=== PATIENT | male | born 1960 | race Caucasian/White ===

== ENCOUNTER 2017-11-16 06:49 | Inpatient (IN) | payer OTHER ==
[~2017-11-16] VITALS: Ht 185.4 cm; Wt 106.3 kg
[2017-11-16] MEDS ORDERED: ENOXAPARIN SODIUM INJ 100 MG/ML SYR SC STA (06:55)
[2017-11-16] MEDS ORDERED: SODIUM CHLORIDE 0.9% 1000ML 1,000 ML IV ONE ×3 (07:00→08:15)
[2017-11-16] MEDS ORDERED: AMIODARONE HCL 150MG 100 ML IV SCH (07:00)
[2017-11-16] MEDS ORDERED: AMIODARONE HCL 360MG 200 ML IV SCH ×2 (07:00→12:00)
[2017-11-16] MEDS ORDERED: AMIODARONE HCL INJ 150MG/3ML ONE ×2 (07:13→07:29)
[2017-11-16] MEDS ORDERED: MIDAZOLAM HCL 5MG/ML 2ML VIAL IV ONE (07:15)
[2017-11-16] MEDS ORDERED: MORPHINE SULFATE 5 MG/ML VIAL IV ONE (07:15)
[2017-11-16] MEDS ORDERED: AMIODARONE 900MG 500 ML IV ONE (07:15)
[2017-11-16] MEDS ORDERED: AMIODARONE HCL 150 MG in DEXTROSE 5% 100ML 100 ML IV SCH (07:15)
--- NOTE | 2017-11-16 07:16 | Diagnostic Imaging Report ---
PROCEDURE:CHEST SINGLE (PORTABLE) TECHNIQUE:Portable AP chest INDICATION:Shortness of breath COMPARISON:None. FINDINGS: Cardiomegaly with small left pleural effusion, bilateral lower lobe airspace opacity, left lingular air space opacity and mild central vascular prominence. Intact skeleton. CONCLUSION: Central vascular congestion with left lower lobe and lingular airspace opacity consistent with atelectasis and/or pneumonia in the appropriate context. Small left pleural effusion. Dictated by: Jad Gibbs M.D. on 11/16/2017 at 7:16 Electronically approved by: Jda Gibbs M.D. on 11/16/2017 at 7:16
[2017-11-16 07:18] LABS: BASOPHILS # (AUTO) 0.1 (0.0-0.1); BASOPHILS % 0.3 % (0.0-1.0); EOSINOPHILS % 0.2 % (0.0-6.0); HEMATOCRIT 43.5 % (38.2-49.6); HEMOGLOBIN 14.8 g/dL (14.0-18.0); LYMPHOCYTES # (AUTO) 0.8 (1.0-3.2); LYMPHOCYTES % 4.6 % (18.0-39.1); MEAN CORPUSCULAR HEMOGLOBIN 30.3 pg (28-32); MEAN CORPUSCULAR VOLUME 89.1 fL (81-99); MONOCYTES # (AUTO) 1.4 (0.2-0.8); MONOCYTES % 7.7 % (4.4-11.3); NEUTROPHILS # (AUTO) 15.4 (2.1-6.9); PLATELET COUNT 189 x10e3/uL (140-360); RED BLOOD COUNT 4.88 x10e6/uL (4.3-5.7); RED CELL DISTRIBUTION WIDTH 14.1 % (11.7-14.4)
[2017-11-16] MEDS ORDERED: MIDAZOLAM HCL 2 MG/2 ML VIAL ONE (07:19)
[2017-11-16] MEDS: AMIODARONE HCL 900 MG in DEXTROSE 5 % 500ML BOTTLE 500 ML IV SCH ×2 (07:20→22:57)
[2017-11-16 07:23] LABS: INR 1.37; PROTHROMBIN TIME 15.9 seconds (11.9-14.5)
[2017-11-16 07:24] LABS: PARTIAL THROMBOPLASTIN TIME 33.7 seconds (23.8-35.5)
[2017-11-16 07:30] LABS: ALBUMIN/GLOBULIN RATIO 0.7 (0.8-2.0); ANION GAP 21.7 mmol/L (8-16); CALCIUM 8.6 mg/dL (8.4-10.2); CREATININE, SERUM 3.29 mg/dL (0.72-1.25); POTASSIUM 4.7 mmol/L (3.5-5.1)
[2017-11-16] MEDS ORDERED: MORPHINE SULFATE 2 MG/ML SYR IV ONE (07:30)
[2017-11-16] MEDS ORDERED: MIDAZOLAM HCL 2 MG/2 ML VIAL IV ONE (07:30)
[2017-11-16] MEDS ORDERED: AMIODARONE HCL 150MG 100 ML IV ONE (07:30)
[2017-11-16] MEDS ORDERED: SODIUM CHLORIDE 0.9% 1000ML 1,000 ML ONE (07:35)
[2017-11-16 07:37] LABS: CREATINE KINASE MB 2.3 ng/mL (0-5.0)
[2017-11-16 07:58] LABS: MAGNESIUM 1.5 MG/DL (1.3-2.1); PHOSPHORUS 4.4 MG/DL (2.3-4.7)
[2017-11-16] MEDS ORDERED: KETOROLAC TROMETHAMINE 30 MG/ML VIAL IV STA (08:07)
[2017-11-16] MEDS ORDERED: CEFTRIAXONE SOD 1 GM VIAL IV ONE (08:15)
[2017-11-16] MEDS ORDERED: MAGNESIUM SULFATE 2GM/50ML 50 ML IV ONE (08:15)
[2017-11-16 08:16] LABS: THYROID STIMULATING HORMONE 3.478 uIU/mL (0.350-4.940)
[2017-11-16 08:33] LABS: BAND NEUTROPHILS % (MANUAL) 15 %; LYMPHOCYTES % (MANUAL) 4 % (19-48); MONOCYTES % (MANUAL) 7 % (3.4-9.0); NEUTROPHILS % (MANUAL) 74 % (40-74)
[2017-11-16 08:34] LABS: ANISOCYTOSIS SLIGHT; PLATELET ESTIMATE ADEQUATE; PLATELET MORPHOLOGY COMMENT FEW LARGE; RBC MORPHOLOGY COMMENT NORMAL
[2017-11-16 08:35] LABS: HYPOCHROMASIA SLIGHT
[2017-11-16] MEDS ORDERED: SODIUM CHLORIDE 0.9% 1000ML 1,000 ML IV SCH ×2 (08:45)
[2017-11-16] MEDS ORDERED: METOPROLOL TART25 MG PO (08:56)
[2017-11-16] MEDS ORDERED: JANUMET 50-1,01 EACH PO (08:56)
[2017-11-16] MEDS ORDERED: PLAVIX75 MG PO (08:56)
[2017-11-16] MEDS ORDERED: COMBIVENT RESPIM4 GM IH (08:56)
[2017-11-16] MEDS ORDERED: ATORVASTATIN CA20 MG PO (08:56)
[2017-11-16] MEDS ORDERED: jardiance PO (08:56)
[2017-11-16] MEDS ORDERED: ASPIR 8181 MG PO (08:56)
[2017-11-16] MEDS ORDERED: LEVEMIR100 UNIT/1 SC (08:56)
[2017-11-16] MEDS ORDERED: ZESTRIL2.5 MG PO (08:56)
[2017-11-16] MEDS ORDERED: stiolto INH (08:56)
[2017-11-16] MEDS: SODIUM CHLORIDE 0.9% 1000ML 1,000 ML IV SCH ×2 (09:42→21:25)
[2017-11-16] MEDS ORDERED: ASPIRIN 81 MG CHEW TAB PO ONE (09:45)
--- OUTSIDE RECORDS SUMMARY | 2017-11-16 10:31 | XMS REPORT ---
Author Author [facility] Address Unknown Phone Unavailable Care Team Providers Care Special Education Administrator Name Role Phone LB MOODY Unavailable Unavailable Problems This patient has no known problems. Allergies, Adverse Reactions, Alerts This patient has no known allergies or adverse reactions. Medications This patient has no known medications. Results Test Description Test Time Test Comments Text Results Atomic Results Result Comments CHEST SINGLE (PORTABLE) [place] [id number] Patient Name: ANTONETTE VILLA MR #: [id number] : 1960 Age/Sex: 57/M Req #: [id number] Adm Physician: Ordered by: JACLYN RODRIGUEZ MD Report #: [id number] Location: ER Room/Bed: ___ Procedure: [id number] DX/CHEST SINGLE (PORTABLE) Exam Date: 11/16/17 Exam Time: 0700 REPORT STATUS: Signed PROCEDURE : CHEST SINGLE (PORTABLE) TECHNIQUE: Portable AP chest INDICATION: Shortness of breath COMPARISON: None. FINDINGS: Cardiomegaly with small left pleural effusion, bilateral lower lobe airspace opacity, left lingular air space opacity and mild central vascular prominence. Intact skeleton. CONCLUSION: Central vascular congestion with left lower lobe and lingular airspace opacity consistent with atelectasis and/or pneumonia in the appropriate context. Small left pleural effusion. Dictated by: Jose Gibbs M.D. on 11/16/2017 at 7:16 Electronically approved by: Jose Gibbs M.D. on 11/16/2017 at 7:16 Dictated By: JOSE GIBBS MD 5 Transcribed By: DENISE on 11/16/17715 COPY TO: JACLYN RODRIGUEZ MD
[2017-11-16] MEDS ORDERED: MORPHINE SULFATE 2 MG/ML SYR IV PRN (11:00)
[2017-11-16] MEDS: ACETAMINOPHEN 325 MG TAB PO PRN (13:31)
[2017-11-16 14:50] VITALS: BP 124/82
[2017-11-16 15:29] VITALS: BP 124/82
[2017-11-16 15:38] LABS: CREATINE KINASE MB 1.8 ng/mL (0-5.0)
--- NOTE | 2017-11-16 16:34 | Consultation ---
DATE OF CONSULTATION: November 16, 2017 CARDIOLOGY CONSULTATION REASON FOR CONSULTATION: Symptomatic atrial fibrillation. HISTORY: This is a 57-year-old gentleman who is known with diabetes, hypertension, coronary artery disease status post PCI in 2012, ex-smoker who stopped in 2012, COPD, emphysema and chronic renal insufficiency. Patient was doing relatively well. His activities are limited by his "COPD." He is able to be functional to a certain degree but not overly functional or exercising. The patient was in his usual status of health. His illness started 4 days ago with fever, chills, sore throat and feeling miserable. He was seen by his PCP. He was given some medication but no antibiotics. Yesterday he was having severe cough. With cough, he feels dizzy and feeling like he is going to pass out. Today he was very weak. He took all his medication, and he tried to stand up, and he almost collapsed. -- was called, and the patient was in atrial fibrillation. He was given adenosine, which did not slow down his heart rate. His heart rate was at 200. He was hypotensive with systolic blood pressure in the 80s. In emergency room, he had 2 synchronized direct-current shocks. He converted to sinus tachycardia. He was given amiodarone and admitted for further management. Cardiac consultation is obtained. I visited with the patient who is still having sore throat and cough. He is still feeling weak with shortness of breath. He denied having any anginal symptoms, although with the low blood pressure, he was feeling chest tightness and he was very dizzy. Prior to this illness, definitely there was no angina. REVIEW OF SYSTEMS: Extensive to all systems. Only pertinent positive and negative ones will be mentioned. GENERAL: Fever, chills. HEENT: Sore throat. Severe cough with secretions changing from yellowish to greenish. PULMONARY: Chronic shortness of breath on exertion. "I have emphysema," but worsening with acute illness. CARDIAC: Prior PCI but no recent angina. No orthopnea. No paroxysmal nocturnal dyspnea. No swelling of the lower extremities. GI: No hematemesis. No melena. : No hematuria. No dysuria. HEMATOLOGIC: Easy bruising but no bleeding. MUSCULAR: Nonspecific aches of the back and knee. NEUROLOGIC: No headache. No localized deficits. Patient for some time does have diplopia. 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 Questionable details of the workup. SOCIAL HISTORY: He is . Ex-smoker in 2013. Social alcohol drinker. HOME MEDICATIONS: Include all the followin. Aspirin 81 mg a day. 2. Plavix 75 mg a day. 3. Atorvastatin 40 mg a day. 4. Metoprolol 25 mg twice a day. 5. Lisinopril 5 mg a day. 6. Combivent scheduled inhaler. 7. Janumet 50 per 1,000 two tablets twice a day. 8. Jardiance 25 mg a day. 9. Levemir 50 units nightly. ALLERGIES: ONE TYPE OF INSULIN--HE CANNOT RECALL THE NAME. PAST MEDICAL HISTORY 1. Hypertension since 2001. 2. Diabetes mellitus since 2007. 3. Coronary artery disease with PCI to the LAD in 2012 at [facility]. 4. Chronic renal disease. 5. COPD and emphysema. FAMILY HISTORY: Father is alive in his 80s. He is diabetic but under control. Mother of COPD and emphysema complications in her 70s. No brother. One sister who is alive, but she suffers from breast cancer. One son and 1 daughter at ages 37 and 30 are doing well. PHYSICAL EXAMINATION: Height of 6 feet 1 inch, weight of 235 pounds. LABS: Sodium 132, potassium 4.7, chloride 99, bicarb 16, BUN 56, creatinine 3.9. White blood cell count of 17.8, hemoglobin 14.8, hematocrit 44%, platelet count 189,000. Hemoglobin A1c at 8.7%. Lactic acid is 24.3. TSH of 3.5. BNP of only 49. EKG: Atrial fibrillation with a heart rate of almost 200. Repeat EKG after cardioversion showing sinus tachycardia. IMAGING: Chest x-ray showing bilateral infiltrates and small pleural effusions. IMPRESSION AND PLAN 1. Recent cold or viral infection with possible pneumonia. 2. Symptomatic atrial fibrillation with hypotension status post cardioversion in emergency room. 3. Coronary artery disease status post percutaneous coronary intervention. 4. Hypertension. 5. Diabetes mellitus, severe end-organ damage. 6. Chronic renal insufficiency. 7. Chronic obstructive pulmonary disease and emphysema. Cardiac-hoang, the patient will continue his atorvastatin and his metoprolol. Will place patient on Eliquis. Will stop his lisinopril. He is already on amiodarone. Regarding his diabetes, orders written by Dr. Dudley as well as antibiotic coverage. Gentle hydration will be done with precaution. Definitely, the patient is not in CHF based on his BNP results. Case discussed and explained to the patient and his . Treatment will be towards the acute illness. The patient needs also to have ischemic evaluation in the future. All this discussed and explained. Questions are answered. Lengthy visit. Very sick patient. Job#: [id number]
[2017-11-16 16:47] VITALS: BP 124/82
[2017-11-16] MEDS ORDERED: METOPROLOL TARTRATE 25 MG TAB PO SCH (17:00)
[2017-11-16] MEDS ORDERED: APIXAB 2.5 MG TABLET PO SCH (17:00)
[2017-11-16] MEDS: APIXAB 2.5 MG TABLET PO SCH (17:18)
[2017-11-16 17:30] VITALS: BP 112/68
[2017-11-16] MEDS: AZITHROMYCIN 250MG/NS 100 ML 100 ML IV SCH (17:36)
[2017-11-16] MEDS: METOPROLOL TARTRATE 25 MG TAB PO SCH (17:38)
[2017-11-16 19:25] VITALS: BP 104/79
[2017-11-16] MEDS: ALBUTEROL/IPRATROPIUM 3 ML NEB NEB PRN (20:15)
[2017-11-16] MEDS: ATORVASTATIN 40 MG TAB PO SCH (20:50)
--- NOTE | 2017-11-16 20:53 | Consultation ---
DATE OF CONSULTATION: November 16, 2017 REASON FOR CONSULTATION: Acute kidney failure. This 57-year-old male, exsmoker, comes in complaining of nausea and vomiting for the last week. He had fever, chills, sore throat and feeling miserable. He has not been eating well and not drinking well. He went to his primary yesterday and had lab work done. Today, he was not feeling well. He took all his meds, tried to stand up and he almost collapsed. He came in through the emergency room. He was found to be hypotensive in the emergency room and had 2 synchronized direct current shocks. He converted to sinus tachycardia from atrial fibrillation. PAST MEDICAL HISTORY: 1. Type 2 diabetes mellitus. 2. Two PR's with PCI in 2012. 3. Coronary artery disease. 4. Chronic obstructive pulmonary disease. 5. Emphysema. 6. Possible chronic kidney disease. SOCIAL HISTORY: . An exsmoker. Social alcohol drinker. HOME MEDICATIONS: Aspirin, atorvastatin, Plavix, metoprolol, lisinopril, Janumet, Jardiance, Levemir. ALLERGIES: ONE TYPE OF INSULIN, HE DOES NOT KNOW. FAMILY HISTORY: Kidney stones. REVIEW OF SYSTEMS: Positive for nausea and vomiting. Positive shortness of breath. No blood in the stool or the urine. No enlarged lymph nodes. No prostate syndrome. Basically 14 systems are negative except as above. PHYSICAL EXAMINATION GENERAL: Alert, following commands. HEENT: Pupils equal, reactive to light and accommodation. NECK: No JVD, no bruit. LUNGS: No rales. HEART: Regular rate and rhythm. No S3, no S4. ABDOMEN: Nontender, nondistended. No hepatosplenomegaly. EXTREMITIES: No clubbing, no cyanosis, no edema. VITAL SIGNS: Blood pressure 124/82, pulse 18. LABORATORY DATA: White count 17, hemoglobin 14.8, hematocrit 43, sodium 132, potassium 4.7, chloride 99, BUN 56, creatinine 3.29, glucose 262, hemoglobin A1c 8.7. Chest x-ray central vascular congestion with left lower lobe and lingular airspace opacity consistent with atelectasis or pneumonia. CURRENT MEDICATIONS: Metoprolol, Azithromycin, Eliquis, Tylenol, amiodarone, sodium chloride, atorvastatin, cefepime, Albuterol, morphine, aspirin. ASSESSMENT AND PLAN: Acute kidney failure with possible chronic kidney disease. I do not have any previous labs on him. At this time, I am considering this acute kidney failure until we get records from his primary with previous creatinine value. For now, will check renal ultrasound and fractional excretion of sodium, urinalysis and urine eosinophil. The patient is on IV fluids, which should help. Also, his lisinopril was on hold, which also probably contributed to his renal failure while he was volume depleted. In short, this is multifactorial renal failure secondary to (1) pneumonia (2) volume depletion (3) medications (4) possible chronic kidney disease secondary to diabetes and hypertension. Job#: [id number] ALDO
[2017-11-16] MEDS ORDERED: ATORVASTATIN 20 MG TAB PO SCH (21:00)
[2017-11-16 23:35] VITALS: BP 102/68
[2017-11-17 02:32] LABS: CREATINE KINASE MB 1.7 ng/mL (0-5.0)
[2017-11-17 04:15] VITALS: BP 114/62
[2017-11-17 05:58] LABS: BASOPHILS # (AUTO) 0.1 (0.0-0.1); BASOPHILS % 0.5 % (0.0-1.0); EOSINOPHILS # (AUTO) 0.2 (0.0-0.4); EOSINOPHILS % 1.2 % (0.0-6.0); HEMATOCRIT 37.1 % (38.2-49.6); HEMOGLOBIN 12.2 g/dL (14.0-18.0); LYMPHOCYTES # (AUTO) 0.9 (1.0-3.2); LYMPHOCYTES % 6.4 % (18.0-39.1); MEAN CORPUSCULAR HEMOGLOBIN 29.8 pg (28-32); MEAN CORPUSCULAR HGB CONC 32.9 g/dL (31-35); MEAN CORPUSCULAR VOLUME 90.7 fL (81-99); MONOCYTES # (AUTO) 1.1 (0.2-0.8); NEUTROPHILS # (AUTO) 11.3 (2.1-6.9); NEUTROPHILS % 83.2 % (38.7-80.0); PLATELET COUNT 177 x10e3/uL (140-360); RED BLOOD COUNT 4.09 x10e6/uL (4.3-5.7); RED CELL DISTRIBUTION WIDTH 14.4 % (11.7-14.4)
[2017-11-17 06:18] LABS: ALBUMIN 2.4 g/dL (3.5-5.0); ALBUMIN/GLOBULIN RATIO 0.7 (0.8-2.0); CHOL/HDL RATIO 6.9 (3.9-4.7); CREATININE, SERUM 1.73 mg/dL (0.72-1.25)
--- NOTE | 2017-11-17 06:47 | Diagnostic Imaging Report ---
CHEST SINGLE (PORTABLE), 11/17/2017 7:00 AM Technique: CHEST SINGLE (PORTABLE) Comparison: 11/16/2017 Clinical history: Pneumonia Findings: See Impression Impression: Limited portable view 1. Stable cardiomediastinal silhouette 2. Left greater than right bibasilar opacities in keeping with pneumonia. Signed by: Dr Lisbeth Mcclure MD on 11/17/2017 6:44 AM
[2017-11-17 07:00] VITALS: BP 109/68
[2017-11-17] MEDS: ASPIRIN 81 MG ENTERIC COATED PO SCH (08:16)
[2017-11-17] MEDS: CEFEPIME HCL 1 GM VIAL IV SCH (08:16)
[2017-11-17] MEDS: APIXAB 2.5 MG TABLET PO SCH ×2 (08:17→17:09)
[2017-11-17] MEDS: ACETAMINOPHEN 325 MG TAB PO PRN ×2 (08:17→12:53)
[2017-11-17] MEDS: METOPROLOL TARTRATE 25 MG TAB PO SCH ×2 (08:35→17:55)
[2017-11-17 08:57] VITALS: BP 105/54
[2017-11-17 10:17] LABS: LYMPHOCYTES % (MANUAL) 3 % (19-48); MONOCYTES % (MANUAL) 10 % (3.4-9.0); NEUTROPHILS % (MANUAL) 86 % (40-74)
[2017-11-17 10:18] LABS: PLATELET ESTIMATE ADEQUATE; PLATELET MORPHOLOGY COMMENT NORMAL; RBC MORPHOLOGY COMMENT NORMAL
[2017-11-17] MEDS: AMIODARONE HCL 900 MG in DEXTROSE 5 % 500ML BOTTLE 500 ML IV SCH (13:04)
[2017-11-17 13:57] LABS: FREE T4 (FREE THYROXINE) 1.24 ng/dL (0.9-1.8); THYROID STIMULATING HORMONE 0.602 uIU/mL (0.350-4.940)
--- NOTE | 2017-11-17 15:54 | Consultation ---
DATE OF CONSULTATION: November 17, 2017 ENDOCRINE CONSULTATION This is a patient of Dr. Dudley. Thank you very much for referring this patient. HISTORY OF PRESENT ILLNESS: This is a 57-year-old white gentleman who is referred to me for evaluation of uncontrolled diabetes mellitus. Patient reportedly is a known diabetic for almost 10 years and takes a combination of oral hypoglycemics including Jardiance, Janumet, and 20 to 25 units of Levemir at bedtime. Patient says that he had some ALLERGIC REACTION TO SHORT-ACTING INSULIN IN THE PAST. He came to the hospital with a history of shortness of breath, cough which was getting progressively worse. In the ER he was found to have atrial fibrillation with a rapid ventricular rate, and he had to have a cardioversion done. Patient also has history of coronary artery disease, status post stent placement done in the past. He has history of hypertension, hyperlipidemia. PHYSICAL EXAMINATION: GENERAL: Today the patient is alert, awake, a little bit apprehensive. VITAL SIGNS: His heart rate is around 80. Blood pressure is 130/80 mmHg. HEENT: Examination essentially unremarkable. Thyroid is palpable. Clinically he is near euthyroid. CHEST: Bilateral vesicular breathing. He has bilateral bronchospasm. CARDIAC: Both 1st and 2nd heart sounds. There is no 3rd or 4th heart sound. Ejection sound grade 2/6. EXTREMITIES: The patient has evidence of diabetic sensory neuropathy in both lower extremities. CLINICAL IMPRESSION: Diabetes mellitus type 2, uncontrolled with complications. Epbsm-ju-[id number] renal failure, could be partly also related to acute illness as well as being on the Jardiance. Atrial fibrillation with rapid ventricular rate. Coronary artery disease, status post stent placement. Hypertension. The plan at this time is to stop the oral hypoglycemics and the Jardiance completely at this time. IV hydration. Monitor his blood sugars closely and put him on the basal bolus insulin therapy. Will also do a hemoglobin A1c, thyroid function test. Thanks again for referring this patient. I will be following this patient with you. Job#: [id number] EV MTDChava
[2017-11-17] MEDS ORDERED: NON-FORMULARY MEDICATION (Sitagliptin Phos/Metformin Hcl (Janumet 50-1,000 Mg Tablet) 1 TA PO SCH (17:00)
[2017-11-17] MEDS: AMIODARONE HCL 200 MG TAB PO SCH (17:09)
[2017-11-17] MEDS: AZITHROMYCIN 250MG/NS 100 ML 100 ML IV SCH (17:10)
[2017-11-17] MEDS: SODIUM CHLORIDE 0.9% 1000ML 1,000 ML IV SCH (17:10)
[2017-11-17 17:17] VITALS: BP 129/83
[2017-11-17] MEDS ORDERED: INSULIN DETEMIR 100 UNIT/ML PEN SQ SCH (17:30)
[2017-11-17] MEDS: INSULIN LISPRO 100 UNIT/1 ML 3ML VIAL SQ SCH ×2 (18:42→21:37)
[2017-11-17 19:15] VITALS: BP_SYST 101; BP_SYST 106; BP_DIAS 66
[2017-11-17] MEDS ORDERED: NON-FORMULARY MEDICATION (Insulin Detemir (Levemir) 50 UNITS) SC SCH (21:00)
[2017-11-17] MEDS ORDERED: HEPARIN SOD (PORCINE) 1000 UNIT/ML SDV ONE (21:05)
[2017-11-17] MEDS: ATORVASTATIN 40 MG TAB PO SCH (21:36)
[2017-11-17] MEDS: HYDROCODONE/APAP 5MG-325MG TAB PO PRN (21:37)
--- NOTE | 2017-11-17 21:56 | Diagnostic Imaging Report ---
EXAM: US RENAL RETROPERITONEAL COMP INDICATION: \S\renal us only for kidney failure COMPARISON: None TECHNIQUE: Transverse and longitudinal images of the kidneys and bladder were obtained. FINDINGS: Right Kidney: Length: 11.7 cm Appearance: Normal echogenicity. Collecting system: No hydronephrosis Stones: None Cyst/Mass: None Left Kidney: Length: 12.9 cm Appearance: Normal echogenicity. Collecting system: No hydronephrosis Stones: None Cyst/Mass: Rounded 3.7 x 2.2 x 2.8 cm area of the medial interpolar left kidney. Bladder: Normal IMPRESSION: 1. No hydronephrosis. 2. Rounded area of the medial interpolar left kidney, which may simply reflect a column of Kade although an isoechoic renal mass is not excluded on the basis of this study. Recommend nonemergent follow-up CT with IV contrast to further evaluate. Signed by: Dr Lisbeth Mcclure MD on 11/17/2017 9:52 PM
[2017-11-17 23:46] VITALS: BP 118/74
[2017-11-18] VITALS (8 sets, daily range): BP systolic 106–164; BP diastolic 66–94
[2017-11-18 06:25] LABS: BASOPHILS % 0.5 % (0.0-1.0); EOSINOPHILS # (AUTO) 0.2 (0.0-0.4); EOSINOPHILS % 3.1 % (0.0-6.0); HEMOGLOBIN 12.7 g/dL (14.0-18.0); LYMPHOCYTES % 13.2 % (18.0-39.1); MEAN CORPUSCULAR HGB CONC 32.6 g/dL (31-35); MONOCYTES # (AUTO) 0.7 (0.2-0.8); MONOCYTES % 9.4 % (4.4-11.3); NEUTROPHILS # (AUTO) 5.7 (2.1-6.9); PLATELET COUNT 198 x10e3/uL (140-360); RED BLOOD COUNT 4.24 x10e6/uL (4.3-5.7); RED CELL DISTRIBUTION WIDTH 14.3 % (11.7-14.4)
[2017-11-18 06:43] LABS: ANION GAP 13.2 mmol/L (8-16); CALCIUM 8.7 mg/dL (8.4-10.2); CREATININE, SERUM 1.28 mg/dL (0.72-1.25); POTASSIUM 4.2 mmol/L (3.5-5.1)
[2017-11-18] MEDS ORDERED: METFORMIN HCL 500 MG TAB PO SCH (08:00)
[2017-11-18] MEDS ORDERED: SITAGLIPTIN 100 MG TAB PO SCH (08:00)
[2017-11-18] MEDS: AMIODARONE HCL 200 MG TAB PO SCH ×3 (08:09→16:57)
[2017-11-18] MEDS: INSULIN LISPRO 100 UNIT/1 ML 3ML VIAL SQ SCH ×5 (08:17→20:14)
[2017-11-18] MEDS: ASPIRIN 81 MG ENTERIC COATED PO SCH (08:36)
[2017-11-18] MEDS: CEFEPIME HCL 1 GM VIAL IV SCH (08:36)
[2017-11-18] MEDS: APIXAB 2.5 MG TABLET PO SCH ×2 (08:36→16:57)
[2017-11-18] MEDS: METOPROLOL TARTRATE 25 MG TAB PO SCH ×2 (08:37→16:58)
[2017-11-18] MEDS ORDERED: [UNRECOGNIZED DRUG - OTHER] PO SCH (09:00)
[2017-11-18] MEDS: ALBUTEROL/IPRATROPIUM 3 ML NEB NEB PRN ×2 (12:06→19:06)
[2017-11-18] MEDS: SODIUM CHLORIDE 0.9% 1000ML 1,000 ML IV SCH (15:46)
[2017-11-18] MEDS: HYDROCODONE/APAP 5MG-325MG TAB PO PRN (15:46)
[2017-11-18] MEDS: AZITHROMYCIN 250MG/NS 100 ML 100 ML IV SCH (16:57)
[2017-11-18 18:47] LABS: BILIRUBIN,URINE NEGATIVE (NEGATIVE); CLARITY,URINE CLEAR (CLEAR); COLOR,URINE YELLOW (YELLOW); KETONES,URINE NEGATIVE (NEGATIVE); LEUKOCYTE ESTERASE ,URINE NEGATIVE (NEGATIVE); NITRITE,URINE NEGATIVE (NEGATIVE); URINE UROBILINOGEN 0.2 mg/dL (0.2 - 1)
[2017-11-18 18:48] LABS: PROTEIN,URINE DIPSTICK 1+ (NEGATIVE)
[2017-11-18 19:01] LABS: BACTERIA,URINE RARE /HPF; EPITHELIAL CELLS,URINE RARE /LPF; RBC,URINE 0-5 /HPF (0-5); WBC,URINE (MAN) 0-5 /HPF (0-5)
[2017-11-18 19:16] LABS: SODIUM,URINE 92 mmol/L; TOTAL PROTEIN, URINE 21.7 mg/dL (1-14)
[2017-11-18 19:31] LABS: CREATININE,URINE RANDOM 43.94 mg/dL (63-166)
[2017-11-18] MEDS: ATORVASTATIN 40 MG TAB PO SCH (20:14)
[2017-11-18 20:34] LABS: EOSINOPHIL SMEAR,URINE NONE SEEN (NONE SEEN)
[2017-11-19 03:47] VITALS: BP 167/77
[2017-11-19] MEDS: ACETAMINOPHEN 325 MG TAB PO PRN (07:09)
[2017-11-19] MEDS: INSULIN LISPRO 100 UNIT/1 ML 3ML VIAL SQ SCH ×6 (07:30→21:20)
[2017-11-19] MEDS: ALBUTEROL/IPRATROPIUM 3 ML NEB NEB PRN ×3 (07:44→19:50)
[2017-11-19 08:00] VITALS: BP 143/88
[2017-11-19] MEDS: AMIODARONE HCL 200 MG TAB PO SCH ×3 (08:00→17:00)
[2017-11-19] MEDS: CEFEPIME HCL 1 GM VIAL IV SCH (09:10)
[2017-11-19] MEDS: APIXAB 2.5 MG TABLET PO SCH ×2 (09:10→17:00)
[2017-11-19] MEDS: METOPROLOL TARTRATE 25 MG TAB PO SCH ×2 (09:11→17:00)
--- NOTE | 2017-11-19 11:58 | Diagnostic Imaging Report ---
PROCEDURE: A single AP view of the chest. COMPARISON: 11/17/2017 INDICATIONS: PNEUMONIA FINDINGS: Lines/tubes: None. Lungs: The lung volumes are low. Redemonstrated are bibasilar air space opacities, particularly in the lingula and left lung base. Pleura: There is no pleural effusion or pneumothorax. Heart and mediastinum: The heart and the mediastinum are unchanged. Bones: No acute bony abnormality. IMPRESSION: No significant interval change. Low lung volumes with left lower lobe and lingular opacities, suggestive of pneumonia. Dictated by: Anant Patel M.D. on 11/19/2017 at 11:58 Electronically approved by: Anant Patel M.D. on 11/19/2017 at 11:58
[2017-11-19 12:00] VITALS: BP 134/80
--- NOTE | 2017-11-19 13:42 | Diagnostic Imaging Report ---
EXAMINATION: Head CT HISTORY: Headaches, atrial fibrillation COMPARISON: None. TECHNIQUE: Multidetector axial images were obtained without contrast from the foramen magnum to the vertex . The images were reconstructed using brain and bone algorithms. Thin section brain images were reformatted into coronal and sagittal planes. Intravenous contrast: None. Motion/streaking artifact limits the evaluation of the skull base and posterior cranial fossa. FINDINGS: Parenchyma: 1. Few scatter mostly bilateral frontal juxtacortical white matter hypodensities, most likely nonspecific chronic microvascular ischemic changes.. 2. No mass or hemorrhage. No CT evidence of acute territorial vascular insult. Extra-axial spaces:No abnormal density. No extra-axial fluid collections Brain volume: Normal for age. Ventricles: No hydrocephalus or displacement. Arteries: No density suggestive of thrombus. Dural sinuses: No abnormal density. Extra-axial spaces: No abnormal density. Foramen magnum: No mass, Chiari malformation, or basilar invagination. Sella: No obvious mass. Paranasal/mastoid sinuses: Imaged portions unremarkable. Skull/Scalp: No lytic or blastic lesions. No fractures. IMPRESSION: 1. No acute intracranial hemorrhage or cortical infarcts. 2. Mild chronic microvascular ischemic changes Signed by: Dr. Barbara Conde M.D. on 11/19/2017 1:39 PM
[2017-11-19 16:00] VITALS: BP 157/90
[2017-11-19] MEDS: AZITHROMYCIN 250MG/NS 100 ML 100 ML IV SCH (17:00)
[2017-11-19] MEDS: HYDROCODONE/APAP 5MG-325MG TAB PO PRN ×2 (17:28→22:00)
[2017-11-19 19:00] VITALS: BP 164/88
[2017-11-19 19:54] VITALS: BP 164/88
[2017-11-19] MEDS: ATORVASTATIN 40 MG TAB PO SCH (20:53)
[2017-11-19] MEDS ORDERED: INSULIN DETEMIR 100 UNIT/ML PEN SQ SCH ×2 (21:00)
[2017-11-20] VITALS (8 sets, daily range): BP systolic 123–165; BP diastolic 77–95
[2017-11-20] MEDS: ALBUTEROL/IPRATROPIUM 3 ML NEB NEB PRN ×4 (01:58→20:00)
[2017-11-20] MEDS: HYDROCODONE/APAP 5MG-325MG TAB PO PRN ×3 (02:30→23:49)
[2017-11-20 06:25] LABS: BASOPHILS % 0.6 % (0.0-1.0); EOSINOPHILS # (AUTO) 0.3 (0.0-0.4); HEMATOCRIT 39.7 % (38.2-49.6); HEMOGLOBIN 12.9 g/dL (14.0-18.0); LYMPHOCYTES # (AUTO) 1.4 (1.0-3.2); LYMPHOCYTES % 21.2 % (18.0-39.1); MEAN CORPUSCULAR HEMOGLOBIN 29.6 pg (28-32); MEAN CORPUSCULAR HGB CONC 32.5 g/dL (31-35); MEAN CORPUSCULAR VOLUME 91.1 fL (81-99); MONOCYTES # (AUTO) 0.8 (0.2-0.8); MONOCYTES % 12.7 % (4.4-11.3); NEUTROPHILS # (AUTO) 3.9 (2.1-6.9); PLATELET COUNT 214 x10e3/uL (140-360); RED BLOOD COUNT 4.36 x10e6/uL (4.3-5.7); RED CELL DISTRIBUTION WIDTH 14.2 % (11.7-14.4)
[2017-11-20 06:49] LABS: ANION GAP 16.4 mmol/L (8-16); BLOOD UREA NITROGEN 22 mg/dL (7-26); BUN/CREATININE RATIO 19 (6-25); CALCIUM 9.3 mg/dL (8.4-10.2); CARBON DIOXIDE 26 mmol/L (22-29); CHLORIDE 101 mmol/L (98-107); CREATININE, SERUM 1.16 mg/dL (0.72-1.25); EST GLOMERULAR FILTRATION RATE > 60 ML/MIN (60-); GLUCOSE 321 mg/dL (74-118); POTASSIUM 4.4 mmol/L (3.5-5.1); SODIUM 139 mmol/L (136-145)
[2017-11-20] MEDS: INSULIN LISPRO 100 UNIT/1 ML 3ML VIAL SQ SCH ×7 (07:30→20:51)
[2017-11-20] MEDS: DRONEDARONE 400 MG TAB PO SCH ×2 (08:00→17:00)
[2017-11-20] MEDS: CEFEPIME HCL 1 GM VIAL IV SCH (08:51)
[2017-11-20] MEDS: METOPROLOL TARTRATE 25 MG TAB PO SCH ×2 (08:51→17:00)
[2017-11-20] MEDS: APIXABAN 5 MG TABLET PO SCH ×2 (08:51→17:00)
[2017-11-20] MEDS ORDERED: ACETYLCYSTEINE 20% INHAL SOLN 30 ML VIAL PO SCH ×2 (11:15→17:00)
[2017-11-20] MEDS: SODIUM CHLORIDE 0.9% 1000ML 1,000 ML IV SCH (11:45)
[2017-11-20] MEDS: ACETYLCYSTEINE 20% INHAL SOLN 30 ML VIAL PO SCH ×2 (12:09→17:00)
[2017-11-20] MEDS ORDERED: HYDROMORPHONE 1MG/1ML INJ IV ONE (16:30)
[2017-11-20] MEDS: AZITHROMYCIN 250MG/NS 100 ML 100 ML IV SCH (17:00)
--- NOTE | 2017-11-20 17:55 | Diagnostic Imaging Report ---
PROCEDURE: CT ABDOMEN WITH CONTRAST TECHNIQUE: The abdomen was scanned utilizing a multidetector helical scanner from the diaphragm to the iliac crest after the IV administration of 100 cc of Isovue 370 and the oral administration of water. Coronal and sagittal multiplanar reformations were obtained. COMPARISON: Patients [facility], DX, CHEST SINGLE (PORTABLE), 11/19/2017, 11:16. Patients [facility], US, US RETROPERITONEAL ( KIDNEY )., 11/17/2017, 20:11. INDICATIONS: LEFT KIDNEY MASS FINDINGS: LOWER THORAX: Linear opacity in the left lower lobe, likely represent subsegmental atelectasis or scarring. Wedge-shaped groundglass opacity in the posterior and lateral lingula (series 2, image 2, and coronal image 112). Small left pleural effusion. Focal atelectatic changes in the right lower lung (coronal image 61). Atherosclerotic calcification of the coronary arteries. HEPATOBILIARY: Borderline enlarged liver, measuring 16.3 cm in the right midclavicular line. Normal contour. Diffusely decreased attenuation compared to spleen, consistent with steatosis. No focal lesions. No biliary ductal dilation. Gallbladder is unremarkable. SPLEEN: No splenomegaly. PANCREAS: No focal masses or ductal dilatation. ADRENALS: No adrenal nodules. KIDNEYS: Symmetrical renal enhancement. 5-6 mm nonobstructing calculus in the superior pole of the left kidney (series 2, image 32 and coronal image 77). No other renal or any ureteral calculi. No hydronephrosis or obstruction. No cystic or solid, enhancing mass. There is a prominent column of Kade in the left kidney, corresponding to the abnormality seen on recent ultrasound. PERITONEUM / RETROPERITONEUM: No free air or fluid. LYMPH NODES: No lymphadenopathy. VESSELS: Atherosclerotic calcification of the distal abdominal aorta and proximal iliac vessels. GI TRACT: Visualized bowel shows no dilation or obstruction. A short appendix is identified, and normal in caliber. BONES AND SOFT TISSUES: No aggressive lytic lesion. Degenerative changes in the lower thoracic/upper lumbar line with slight rightward curvature. IMPRESSION: 1. Prominent column of Kade in the left kidney, corresponding to the abnormality seen on recent ultrasound. No enhancing renal mass is identified. 2. 5-6 mm nonobstructing calculus in the superior pole of the left kidney. No other renal or ureteral calculi, hydronephrosis or obstruction. 3. Borderline hepatomegaly with diffuse fatty infiltration. No focal lesions. 4. Wedge-shaped groundglass opacity in the posterior and lateral lingula, likely representing pneumonia. A small left pleural effusion is identified. Melchor Billy M.D. Dictated by: Melchor Billy M.D. on 11/20/2017 at 17:54 Electronically approved by: Melchor Billy M.D. on 11/20/2017 at 17:54
[2017-11-20] MEDS ORDERED: SODIUM CHLORIDE 0.9% 50ML 50 ML ONE (20:36)
[2017-11-20] MEDS ORDERED: IOPAMIDOL 370 MG/ML 200 ML INFUS..BTL INJ ONE (20:37)
[2017-11-20] MEDS: ATORVASTATIN 40 MG TAB PO SCH (20:56)
[2017-11-20] MEDS ORDERED: INSULIN DETEMIR 100 UNIT/ML PEN SQ SCH (21:00)
[2017-11-21] MEDS: ALBUTEROL/IPRATROPIUM 3 ML NEB NEB PRN ×2 (01:10→20:15)
[2017-11-21] MEDS: SODIUM CHLORIDE 0.9% 1000ML 1,000 ML IV SCH (04:25)
[2017-11-21 05:30] VITALS: BP 154/92
--- NOTE | 2017-11-21 06:07 | Diagnostic Imaging Report ---
EXAMINATION: CHEST SINGLE (PORTABLE) INDICATION: Pneumonia follow-up COMPARISON: 11/19/2017 and 11/17/2017 FINDINGS: TUBES and LINES: None. LUNGS: Lungs are not well inflated. Persistent left lower lobe and lingular opacity . PLEURA: No pleural effusion or pneumothorax. HEART AND MEDIASTINUM: Cardiac size is mildly enlarged. BONES AND SOFT TISSUES: No acute osseous lesion. Soft tissues are unremarkable. UPPER ABDOMEN: No free air under the diaphragm. IMPRESSION: Stable lingular and left lower lobe opacity compatible with evolving pneumonia. Continued follow-up recommended Signed by: Dr. Bairon Gomez M.D. on 11/21/2017 6:03 AM
[2017-11-21 06:27] LABS: BASOPHILS # (AUTO) 0.1 (0.0-0.1); BASOPHILS % 0.8 % (0.0-1.0); EOSINOPHILS # (AUTO) 0.4 (0.0-0.4); EOSINOPHILS % 6.5 % (0.0-6.0); HEMATOCRIT 40.5 % (38.2-49.6); HEMOGLOBIN 13.3 g/dL (14.0-18.0); LYMPHOCYTES # (AUTO) 1.5 (1.0-3.2); LYMPHOCYTES % 22.9 % (18.0-39.1); MEAN CORPUSCULAR HEMOGLOBIN 29.8 pg (28-32); MEAN CORPUSCULAR HGB CONC 32.8 g/dL (31-35); MEAN CORPUSCULAR VOLUME 90.6 fL (81-99); MONOCYTES # (AUTO) 0.6 (0.2-0.8); MONOCYTES % 9.3 % (4.4-11.3); NEUTROPHILS # (AUTO) 3.9 (2.1-6.9); NEUTROPHILS % 58.7 % (38.7-80.0); PLATELET COUNT 239 x10e3/uL (140-360); RED BLOOD COUNT 4.47 x10e6/uL (4.3-5.7); RED CELL DISTRIBUTION WIDTH 14.1 % (11.7-14.4)
[2017-11-21 06:46] LABS: ANION GAP 14.6 mmol/L (8-16); CREATININE, SERUM 1.24 mg/dL (0.72-1.25); POTASSIUM 4.6 mmol/L (3.5-5.1)
[2017-11-21 07:51] VITALS: BP 118/88
[2017-11-21] MEDS: INSULIN LISPRO 100 UNIT/1 ML 3ML VIAL SQ SCH ×7 (08:00→20:18)
[2017-11-21 08:20] VITALS: BP 118/88
[2017-11-21] MEDS: CEFEPIME HCL 1 GM VIAL IV SCH (08:21)
[2017-11-21] MEDS: APIXABAN 5 MG TABLET PO SCH ×2 (08:21→16:57)
[2017-11-21] MEDS: METOPROLOL TARTRATE 25 MG TAB PO SCH ×2 (08:21→16:57)
[2017-11-21] MEDS: ACETYLCYSTEINE 20% INHAL SOLN 30 ML VIAL PO SCH ×2 (08:21→18:48)
[2017-11-21] MEDS: DRONEDARONE 400 MG TAB PO SCH ×2 (08:21→16:57)
[2017-11-21 11:35] VITALS: BP 144/85
[2017-11-21] MEDS: GUAIFENESIN/DEXTROMETHORPHAN LIQD 5 ML UDC NG PRN (11:35)
[2017-11-21 16:08] VITALS: BP 155/85
[2017-11-21] MEDS: AZITHROMYCIN 250MG/NS 100 ML 100 ML IV SCH (17:01)
[2017-11-21] MEDS: ATORVASTATIN 40 MG TAB PO SCH (20:18)
[2017-11-21] MEDS: INSULIN DETEMIR 100 UNIT/ML PEN SQ SCH (20:18)
[2017-11-21 20:34] VITALS: BP 165/76
[2017-11-22] VITALS (7 sets, daily range): BP systolic 119–155; BP diastolic 61–83
[2017-11-22] MEDS: HYDROCODONE/APAP 5MG-325MG TAB PO PRN ×4 (00:04→21:27)
[2017-11-22] MEDS: INSULIN LISPRO 100 UNIT/1 ML 3ML VIAL SQ SCH ×6 (07:30→21:00)
[2017-11-22] MEDS: DRONEDARONE 400 MG TAB PO SCH ×2 (08:20→16:22)
[2017-11-22] MEDS: APIXABAN 5 MG TABLET PO SCH ×2 (08:21→16:21)
[2017-11-22] MEDS: METOPROLOL TARTRATE 25 MG TAB PO SCH ×2 (08:21→16:22)
[2017-11-22] MEDS: CEFEPIME HCL 1 GM VIAL IV SCH (08:21)
[2017-11-22] MEDS: AZITHROMYCIN 250MG/NS 100 ML 100 ML IV SCH (16:27)
[2017-11-22] MEDS: INSULIN DETEMIR 100 UNIT/ML PEN SQ SCH (21:00)
[2017-11-22] MEDS: ATORVASTATIN 40 MG TAB PO SCH (21:27)
[2017-11-22] MEDS: GUAIFENESIN/DEXTROMETHORPHAN LIQD 5 ML UDC NG PRN (21:27)
[2017-11-23] VITALS: BP 125/65
[2017-11-23 04:00] VITALS: BP 149/67
[2017-11-23 07:40] VITALS: BP 149/67
[2017-11-23 08:20] VITALS: BP 131/71
[2017-11-23] MEDS: DRONEDARONE 400 MG TAB PO SCH (08:31)
[2017-11-23] MEDS: CEFEPIME HCL 1 GM VIAL IV SCH (08:31)
[2017-11-23] MEDS: APIXABAN 5 MG TABLET PO SCH (08:31)
[2017-11-23] MEDS: INSULIN LISPRO 100 UNIT/1 ML 3ML VIAL SQ SCH ×2 (08:31)
[2017-11-23] MEDS: METOPROLOL TARTRATE 25 MG TAB PO SCH (08:32)
== END 2017-11-23 11:39 | disposition home health service (06) | DRG 194 ==
LOC: ER 06:49 → ERHOLD 10:28 → IMCU 14:24 → MED/SURG 11-21 22:44
PROC: 5A2204Z Restoration of Cardiac Rhythm, Single (ICD-10-PCS; principal; 2017-11-16)
DX: J18.9 Pneumonia, unspecified organism (principal); N17.9 Acute kidney failure, unspecified; E11.22 Type 2 diabetes mellitus with diabetic chronic kidney disease; E11.65 Type 2 diabetes mellitus with hyperglycemia; N18.3 Chronic kidney disease, stage 3 (moderate); I48.91 Unspecified atrial fibrillation; J44.9 Chronic obstructive pulmonary disease, unspecified; I25.10 Atherosclerotic heart disease of native coronary artery without angina pectoris; Z88.8 Allergy status to other drugs, medicaments and biological substances; R09.02 Hypoxemia; Z79.4 Long term (current) use of insulin; Z87.891 Personal history of nicotine dependence; J69.0 Pneumonitis due to inhalation of food and vomit; I25.2 Old myocardial infarction
CPT/HCPCS: 36415; 36430; 70450; 71045; 74160; 76770; 80048; 80053; 80061; 81001; 81015; 82550; 82553; 82570; 82948; 83036; 83605; 83735; 83880; 84100; 84156; 84300; 84439; 84443; 84484; 85025; 85379; 85610; 85730; 87040; 87086; 87400; 93005; 93306; 93880; 94640; 96372; 97139; 99284; J0692; J0696; J1170; J1644; J1650; J1885; J2250; J2270; J7030; Q9967

== ENCOUNTER → 2017-12-17 | Outpatient (CLI) | payer OTHER ==
[~2017-12-17] MED LIST: ASPIR 8181 MG PO; ATORVASTATIN CA20 MG PO; COMBIVENT RESPIM4 GM IH; JANUMET 50-1,01 EACH PO; LEVEMIR100 UNIT/1 SC; METOPROLOL TART25 MG PO; PLAVIX75 MG PO; ZESTRIL2.5 MG PO; jardiance PO; stiolto INH
--- NOTE | 2017-12-17 16:19 | Diagnostic Imaging Report ---
PROCEDURE: X-RAY CHEST, TWO VIEWS COMPARISON: Patients [facility], DX, CHEST SINGLE (PORTABLE), 11/21/2017, 5:31. INDICATIONS: FOLLOW UP ON PNEUMONIA FINDINGS: LUNGS: Lingular airspace disease has a more linear configuration. The left lower lobe is clear. Right lung is clear. PLEURA: No effusions or pneumothorax. HEART \T\ MEDIASTINUM: Stable mild cardiomegaly. BONES \T\ SOFT TISSUES: No acute findings. CONCLUSION: Lingular opacity has the appearance of subsegmental atelectasis. Continued followup is recommended. Dictated by: Fredrick Barron M.D. on 12/17/2017 at 16:19 Electronically approved by: Fredrick Barron M.D. on 12/17/2017 at 16:19
== END ==
LOC: RAD 14:59
DX: Z09 Encounter for follow-up examination after completed treatment for conditions other than malignant neoplasm (principal); J18.9 Pneumonia, unspecified organism
CPT/HCPCS: 71046

== ENCOUNTER → 2018-01-01 | Outpatient (CLI) | payer OTHER ==
--- NOTE | 2018-01-01 14:34 | Diagnostic Imaging Report ---
PROCEDURE: X-RAY CHEST, TWO VIEWS COMPARISON: Patients [facility], DX, CHEST SINGLE (PORTABLE), 11/21/2017, 5:31. Patients [facility], DX, CHEST 2 VIEWS, 12/17/2017, 15:36. INDICATIONS: CHEST CONGESTION FINDINGS: LUNGS: Well-inflated. Lingular opacity is less prominent. No new pulmonary findings. Pulmonary vasculature is normal. PLEURA: No effusions or pneumothorax. HEART \T\ MEDIASTINUM: Stable mild cardiomegaly. No hilar lymphadenopathy. BONES \T\ SOFT TISSUES: No focal osseous lesions. CONCLUSION: Continued improvement of lingular opacity. No new cardiopulmonary findings. Dictated by: Fredrick Barron M.D. on 01/01/2018 at 14:35 Electronically approved by: Fredrick Barron M.D. on 01/01/2018 at 14:35
== END ==
LOC: RAD 13:20
DX: R05 Cough (principal)
CPT/HCPCS: 71046

== ENCOUNTER → 2018-01-24 | Outpatient (CLI) | payer OTHER ==
--- NOTE | 2018-01-24 14:34 | Diagnostic Imaging Report ---
PROCEDURE:CT CHEST WITHOUT CONTRAST COMPARISON:None. INDICATIONS:TOBACCO USE TECHNIQUE:Multidetector CT scanning of the chest was performed from the level of the thoracic inlet to the upper abdomen without contrast utilizing a low dose screening protocol. Coronal and sagittal multiplanar reformations were obtained. DLP: 251.26 mGy-cm FINDINGS: Lymph nodes: No enlarged axillary, supraclavicular lymphadenopathy. Prominent subcarinal lymph node measures 9 x 24 mm no calcifications. AP window lymph node measures 1.3 x 0.9 cm. No evidence of hilar lymphadenopathy given the lack of intravenous contrast. Thyroid/base of neck: Unremarkable. Mediastinum: Moderate coronary artery calcifications are present. The heart is normal in size. No pericardial effusion. Descending aorta measures 4.1 x 4.0 cm. The main pulmonary artery measures 2.7 cm. The esophagus is collapsed. Right lung: No evidence of mass or infiltrate. Small paraseptal emphysematous blebs at the apex. Left lung: No mass or infiltrate. Chronic atelectasis/scar in the lingula. Airways: Small amount of dependently layering mucus in the trachea. There is mild diffuse bronchial wall thickening. Pleura: No pleural effusions or pleural-based mass. Abdomen: Visualized portions demonstrate no evidence of mass. Bones: Multiple mild degenerative changes of the spine. No focal osseous lesions. Soft tissues: Mild bilateral gynecomastia. CONCLUSION: 1. ACR Lung-RADS 1: Negative. No evidence of pulmonary mass. Continued annual screening with low dose CT in 12 months. 2. Mild paraseptal emphysema. Bronchial wall thickening suggestive of chronic bronchitis. Small amount of tracheal mucus. 3. Coronary artery calcifications. 4. Mildly prominent mediastinal lymph nodes, likely secondary to infectious/inflammatory process. Dictated by: Fredrick Barron M.D. on 01/24/2018 at 14:35 Electronically approved by: Fredrick Barron M.D. on 01/24/2018 at 14:35
== END ==
LOC: CT 12:38
PROVIDERS: ATTEND Internal Medicine Critical Care Medicine
DX: J18.9 Pneumonia, unspecified organism (principal); J44.9 Chronic obstructive pulmonary disease, unspecified; J42 Unspecified chronic bronchitis; Z87.891 Personal history of nicotine dependence
CPT/HCPCS: 71250

== ENCOUNTER 2018-10-17 04:53 | Emergency (ER) | payer OTHER ==
[~2018-10-17] VITALS: Ht 185.4 cm; Wt 106.1 kg
[2018-10-17] MEDS ORDERED: HYDROCODONE/APAP 10MG-325MG TAB PO ONE (05:15)
--- NOTE | 2018-10-17 06:00 | Diagnostic Imaging Report ---
EXAM: CHEST 2 VIEWS, PA and lateral INDICATION: Cough COMPARISON: PA and lateral view of the chest January 01, 2018 FINDINGS: LINES/TUBES: None LUNGS: No consolidations or edema. PLEURA: No effusions or pneumothorax. HEART AND MEDIASTINUM: Normal size and contour. BONES AND SOFT TISSUES: No acute findings. IMPRESSION: No acute thoracic abnormality. Signed by: Dr. Stephanie Valdez M.D. on 10/17/2018 5:57 AM
--- NOTE | 2018-10-17 06:02 | Diagnostic Imaging Report ---
EXAM: SHOULDER RIGHT COMPLETE INDICATION: Right shoulder pain COMPARISON: None FINDINGS: BONES: No acute fractures. JOINTS: No malalignment. SOFT TISSUES: Normal IMPRESSION: No acute right shoulder findings. Signed by: Dr. Stephanie Valdez M.D. on 10/17/2018 5:59 AM
== END 2018-10-17 06:46 | disposition home or self-care (01) ==
LOC: ER 04:53
DX: M25.511 Pain in right shoulder (principal); X50.1XXA Overexertion from prolonged static or awkward postures, initial encounter; Y92.008 Other place in unspecified non-institutional (private) residence as the place of occurrence of the external cause; R05 Cough; I10 Essential (primary) hypertension; E11.9 Type 2 diabetes mellitus without complications; I25.10 Atherosclerotic heart disease of native coronary artery without angina pectoris; J44.9 Chronic obstructive pulmonary disease, unspecified; I25.2 Old myocardial infarction; Z95.5 Presence of coronary angioplasty implant and graft
CPT/HCPCS: 71046; 93005; 99283

== ENCOUNTER → 2019-02-26 | Outpatient (CLI) | payer OTHER ==
--- NOTE | 2019-02-26 16:05 | Diagnostic Imaging Report ---
EXAM: CHEST 2 VIEWS DATE: 02/26/2019 3:10 PM INDICATION: ^[id number] ^[id number] ^COUGH COMPARISON: Chest x-ray, 10/17/2018 FINDINGS: Lines and tubes: None Heart size normal. No focal pulmonary opacity, pleural effusion or pneumothorax. Upper abdomen unremarkable. No acute bony abnormality. IMPRESSION: No evidence for acute disease or significant change. Signed by: Dr. Kishor Rose M.D. on 02/26/2019 4:02 PM
== END ==
LOC: RAD 15:00
DX: R05 Cough (principal); J43.9 Emphysema, unspecified
CPT/HCPCS: 71046